=== PATIENT | female | born 1930 | race Caucasian/White ===

== ENCOUNTER 2016-11-24 09:26 | Inpatient (IN) | payer OTHER ==
[2016-11-24] MEDS ORDERED: NS 500 ML IV ONE (09:39)
--- NOTE | 2016-11-24 09:48 | CPEKG ---
Heart Rate: 70 RR Interval: 857 P-R Interval: 188 QRSD Interval: 92 QT Interval: 400 QTC Interval: 432 P Dimock: 46 QRS Dimock: 76 T Wave Dimock: -30 EKG Severity - ABNORMAL ECG - EKG Impression: PACEMAKER SPIKES OR ARTIFACTS EKG Impression: SINUS RHYTHM EKG Impression: ANTERIOR INFARCT, AGE INDETERMINATE EKG Impression: ABNORMAL T, CONSIDER ISCHEMIA, INFERIOR LEADS Electronically Signed By: Quang Munoz 24-Nov-2016 14:31:56
--- NOTE | 2016-11-24 09:48 | EDPHY ---
H & P Stated Complaint: Mental status change Source: Patient, Family, EMS - Medical/Surgical History Hx Asthma: Yes Hx Chronic Respiratory Disease: No Hx Diabetes: No Hx Cardiac Disease: Yes Hx Renal Disease: No Hx Cirrhosis: No Hx Alcoholism: No Hx HIV/AIDS: No Hx Splenectomy or Spleen Trauma: No Other PMH: Chronic back pain, rib fracture, HTN, c-difficile, atrial fibrillation, hypothyroidism, asthma, osteoarthritis, chronic pain, hx of single seizure, depression - Social History Smoking Status: Unknown if ever smoked HPI/ROS: CHIEF COMPLAINT: mental status change HISTORY OF PRESENT ILLNESS: EMS arrives with reports of acute mental status changes this morning. Family members report that she is normally acutely aware of her surroundings, converses normally. However this morning, they note that this changed. SHe said that she was not speaking in full sentences. She was not recognizing her family members. She was acting confused. They do not report any unilateral weakness or facial droop. No recent cough or flu-like symptoms. Very are wondering if this is related to urinary tract infection, as she has had a acute delirium in the past due to urinary tract infection. No other information is obtainable from the patient as she is not conversing with this. She was seen at time of arrival by myself and Dr. Munoz. REVIEW OF SYSTEMS: Ten systems reviewed and are negative unless otherwise noted in the HPI EXAMINATION General Appearance: Alert, no distress Head: normocephalic, atraumatic . No outward signs of trauma. Eyes: Pupils equal and round, no conjunctival pallor or injection . EOMs intact. No nystagmus. NO dysconjugate gaze. ENT, Mouth: Mucous membranes Mildly dry. Uvula is midline. There is no erythema or edema. The airway is patent. Neck: Normal inspection, supple, non-tender Respiratory: Lungs are clear to auscultation . No wheezing, rhonchi or crackles. Cardiovascular: Irregularly regular with a regular rate. Later in the examination she was regular rate and rhythm. Gastrointestinal: Abdomen is soft and nontender . NO distention. Normal bowel sounds. NO tympany rigidity. Back: non-tender, no bony abnormalities Neurological: Patient recognizes her name but does not converse, thus we cannot check her mental status otherwise. No facial droop. no unilateral weakness. No outward signs of stroke. Skin: Warm and dry . Mild bruising in all extremities. Superficial skin tear on the right medial calf. NO petechiae or purpura. Extremities: Nontender, no pedal edema Psychiatric: Mood and affect normal DIFFERENTIAL DIAGNOSES: Including but not limited to Acute delirium, acute AMS, uremia, sepsis, UTI, pneumonia, intracranial hemorrhage, hypertensive emergency MDM: 9:35 a.m. acute mental status change this morning as described by her family members and EMS. The patient has no unilateral complaints. She is hypertensive and is not following commands or communicating with us. CT scan of the head was immediately ordered due to ICH. We also ordered a sepsis workup. 10:40 a.m. notified by radiologist that the CT of the head reveals atrophy but no evidence of bleed or acute findings. I have re-evaluated the patient. She is actually improving her mental status. She recognizes her daughter in-law the bedside. SHe recognizes some simple commands. SHe denies any complaints of pain or headache. We will check a Dilantin level, chest x-ray and urinalysis. 11:30 a.m. Encephalopathy without signs or symptoms of infection. No pneumonia on chest x- ray. Urinalysis is normal. Labs within normal limits. NO CT changes. We have consulted Neurology, initiated a Cardene drip and will proceed with admission for further workup. 12:45 p.m. patient has been admitted to the hospitalist and he has evaluated her here in the emergency department. Please see his note for inpatient workup and care. SUPERVISION: This was shared with the attending physician Dr. Munoz. ([facility]) Constitutional: Initial Vital Signs Temperature (C) 98.2 F 11/24/16 09:51 Heart Rate 89 11/24/16 09:51 Respiratory Rate 20 11/24/16 09:51 Blood Pressure 220/88 H 11/24/16 09:51 O2 Sat (%) 94 11/24/16 09:51 O2 Delivery Mode Nasal Cannula O2 (L/minute) 2 Allergies/Adverse Reactions: morphine Allergy (Verified 11/24/16 09:49) Sulfa (Sulfonamide Antibiotics) Allergy (Verified 11/24/16 09:49) sulfamethoxazole Allergy (Verified 11/24/16 09:49) Home Medications: Medication Instructions Recorded Diltiazem HCl [Diltiazem 24Hr Cd] 180 mg PO DAILY 12/09/15 Mometasone/Formoterol [Dulera 200 1 puffs IH HS 12/09/15 Mcg/5 Mcg Inhaler] Mv-Mn/FA/Vit K/Lycop/Lut/Zeaxa 1 each PO DAILY 12/09/15 [Ocuvite Eye + Multi Tablet] Phenytoin Sodium Extended 200 mg PO HS 12/09/15 [Dilantin (*)] oxyCODONE HCL [Oxycontin] 20 mg PO Q12H 12/09/15 oxyCODONE/APAP 5/325 [Percocet 1 tab PO BID PRN 12/09/15 5/325 (*)] Donepezil HCl [Aricept 5 MG (*)] 5 mg PO DAILY 11/24/16 Herbals/Supplements -Info Only 1 ea PO DAILY 11/24/16 Levothyroxine [Synthroid 50 mcg 50 mcg PO DAILY06 11/24/16 (*)] Nortriptyline HCl [Pamelor 10 mg 30 mg PO HS 11/24/16 (*)] Venlafaxine HCl [Venlafaxine HCl 150 mg PO DAILY 11/24/16 ER] Medical Decision Making Critical Care Time: Critical care time exclusive of procedures and exclusive of the PA's time was 45 minutes, performed by myself, Quang Munoz MD. The patient presents to the ED with acute altered mental status and hypertensive emergency. The patient has been started on nicardipine drip and will require admission to the intensive care unit. Consultation was made with the hospitalist service as well as neurologist for further assistance in evaluating her acute presentation today. (Quang Munoz) Other Provider: I evaluated and participated in the management of the patient. I also evaluated the patient independently. My co-signature indicates that I have reviewed this chart and I agree with the findings and plan of care as documented. My personal H&P findings include: The patient presents to the ED with acute altered mental status. The patient awoke today with symptoms of confusion. She was ambulatory however confused regarding names people she typically is well acquainted with. The patient has a history of a similar presentation with altered mental status 1 year ago secondary to urinary tract infection. The patient is difficult to examine secondary to her confusion. She does not appear to have any obvious focal motor deficits noted on exam. The patient is noted to be hypertensive upon arrival. She was taken for a stat CT scan of the brain which demonstrated no evidence of intracranial hemorrhage. Patient has no fever nor evidence of urinary tract infection. The patient is on a number of medications for chronic back pain. She also has a history of seizure disorder. Consultation was made with Dr. Emiliano Long from Neurology. The patient will be admitted for close control of her blood pressure. She is started on nicardipine drip for possible hypertensive encephalopathy. Consultation was made with Dr. Cesar Zamarripa from the hospitalist service who evaluated the patient in the ED. She will be admitted to the hospital for further evaluation. CT angiography of the head and neck has been ordered. The patient is not a candidate for thrombolytics therapy as she woke up with these symptoms of acute confusion. Patient's blood pressure is currently 169/89 at 1:09 p.m.. (Quang Munoz) - Data Points Laboratory Results: Laboratory Results 11/24/16 09:40 11/24/16 09:40 11/24/16 11/24/16 11/24/16 11:10 09:40 09:40 WBC RBC Hgb POC Hgb Hct POC Hct MCV MCH MCHC RDW Plt Count MPV Neut % (Auto) Lymph % (Auto) [place] % (Auto) Eos % (Auto) Baso % (Auto) Nucleat RBC Rel Count Absolute Neuts (auto) Absolute Lymphs (auto) Absolute Monos (auto) Absolute Eos (auto) Absolute Basos (auto) Absolute Nucleated RBC Immature Gran % Immature Gran # PT INR APTT VBG Lactic Acid POC Sodium Sodium 138 mEq/L mEq/L (134-144) POC Potassium Potassium 4.6 mEq/L mEq/L (3.5-5.2) POC Chloride Chloride 100 mEq/L mEq/L (97-110) Carbon Dioxide 27 mEq/l mEq/l (22-31) Anion Gap 11 mEq/L mEq/L (8-16) POC BUN BUN 9 mg/dL mg/dL (7-23) Creatinine 0.5 mg/dL L mg/dL (0.6-1.0) POC Creatinine Estimated GFR > 60 Glucose 133 mg/dL H mg/dL (70-100) POC Glucose Calcium 9.4 mg/dL mg/dL (8.5-10.4) Phosphorus Magnesium Total Bilirubin 0.7 mg/dL mg/dL (0.1-1.4) Conjugated Bilirubin 0.6 mg/dL H mg/dL (0.0-0.5) Unconjugated Bilirubin 0.1 mg/dL mg/dL (0.0-1.1) AST 46 IU/L IU/L (14-46) ALT 45 IU/L IU/L (9-52) Alkaline Phosphatase 118 IU/L IU/L (38-126) Ammonia < 9.0 uMOL/L L uMOL/L (9.0-30.0) Creatine Kinase 47 IU/L IU/L (0-156) Troponin I NT-Pro-B Natriuret Pep Total Protein 8.6 g/dL H g/dL (6.3-8.2) Albumin 4.9 g/dL g/dL (3.5-5.0) TSH Urine Color PALE YELLOW Urine Appearance CLEAR Urine pH 7.0 (5.0-7.5) Ur Specific [place] 1.008 (1.002-1.030) Urine Protein NEGATIVE (NEGATIVE) Urine Ketones NEGATIVE (NEGATIVE) Urine Blood NEGATIVE (NEGATIVE) Urine Nitrate NEGATIVE (NEGATIVE) Urine Bilirubin NEGATIVE (NEGATIVE) Urine Urobilinogen NEGATIVE EU EU (0.2-1.0) Ur Leukocyte Esterase NEGATIVE (NEGATIVE) Urine Glucose NEGATIVE (NEGATIVE) Phenytoin 11/24/16 11/24/16 11/24/16 09:40 09:40 09:38 WBC 6.72 10^3/uL 10^3/uL (3.80-9.50) RBC 4.50 10^6/uL 10^6/uL (4.18-5.33) Hgb 15.7 g/dL g/dL (12.6-16.3) POC Hgb Hct 45.9 % % (38.0-47.0) POC Hct MCV 102.0 fL H fL (81.5-99.8) MCH 34.9 pg H pg (27.9-34.1) MCHC 34.2 g/dL g/dL (32.4-36.7) RDW 13.4 % % (11.5-15.2) Plt Count 215 10^3/uL 10^3/uL (150-400) MPV 9.5 fL fL (8.7-11.7) Neut % (Auto) 78.9 % H % (39.3-74.2) Lymph % (Auto) 14.9 % L % (15.0-45.0) [place] % (Auto) 5.4 % % (4.5-13.0) Eos % (Auto) 0.1 % L % (0.6-7.6) Baso % (Auto) 0.6 % % (0.3-1.7) Nucleat RBC Rel Count 0.0 % % (0.0-0.2) Absolute Neuts (auto) 5.30 10^3/uL 10^3/uL (1.70-6.50) Absolute Lymphs (auto) 1.00 10^3/uL 10^3/uL (1.00-3.00) Absolute Monos (auto) 0.36 10^3/uL 10^3/uL (0.30-0.80) Absolute Eos (auto) 0.01 10^3/uL L 10^3/uL (0.03-0.40) Absolute Basos (auto) 0.04 10^3/uL 10^3/uL (0.02-0.10) Absolute Nucleated RBC 0.00 10^3/uL 10^3/uL (0-0.01) Immature Gran % 0.1 % % (0.0-1.1) Immature Gran # 0.01 10^3/uL 10^3/uL (0.00-0.10) PT INR APTT VBG Lactic Acid 1.0 mmol/L mmol/L (0.7-2.1) POC Sodium Sodium POC Potassium Potassium POC Chloride Chloride Carbon Dioxide Anion Gap POC BUN BUN Creatinine POC Creatinine Estimated GFR Glucose POC Glucose Calcium Phosphorus 4.5 mg/dL mg/dL (2.5-4.5) Magnesium 2.0 mg/dL mg/dL (1.6-2.3) Total Bilirubin Conjugated Bilirubin Unconjugated Bilirubin AST ALT Alkaline Phosphatase Ammonia Creatine Kinase Troponin I < 0.012 ng/mL ng/mL (0-0.034) NT-Pro-B Natriuret Pep 828 pg/mL H pg/mL (0-450) Total Protein Albumin TSH 5.610 uIU/mL H uIU/mL (0.465-4.680) Urine Color Urine Appearance Urine pH Ur Specific [place] Urine Protein Urine Ketones Urine Blood Urine Nitrate Urine Bilirubin Urine Urobilinogen Ur Leukocyte Esterase Urine Glucose Phenytoin 11/24/16 11/24/16 11/24/16 09:38 09:35 09:33 WBC RBC Hgb POC Hgb 15.6 gm/dL gm/dL (12.3-15.9) Hct POC Hct 46 % % (35.5-47.5) MCV MCH MCHC RDW Plt Count MPV Neut % (Auto) Lymph % (Auto) [place] % (Auto) Eos % (Auto) Baso % (Auto) Nucleat RBC Rel Count Absolute Neuts (auto) Absolute Lymphs (auto) Absolute Monos (auto) Absolute Eos (auto) Absolute Basos (auto) Absolute Nucleated RBC Immature Gran % Immature Gran # PT 13.1 SEC SEC (12.0-15.0) INR 1.00 (0.83-1.16) APTT 31.1 SEC SEC (23.0-38.0) VBG Lactic Acid POC Sodium 138 mEq/L mEq/L (134-144) Sodium POC Potassium 4.2 mEq/L mEq/L (3.3-5.0) Potassium POC Chloride 99 mEq/L mEq/L (96-108) Chloride Carbon Dioxide Anion Gap POC BUN 9 mg/dL mg/dL (7-23) BUN Creatinine POC Creatinine 0.6 mg/dL mg/dL (0.6-1.2) Estimated GFR Glucose POC Glucose 132 mg/dL H mg/dL (70-100) Calcium Phosphorus Magnesium Total Bilirubin Conjugated Bilirubin Unconjugated Bilirubin AST ALT Alkaline Phosphatase Ammonia Creatine Kinase Troponin I NT-Pro-B Natriuret Pep Total Protein Albumin TSH Urine Color Urine Appearance Urine pH Ur Specific [place] Urine Protein Urine Ketones Urine Blood Urine Nitrate Urine Bilirubin Urine Urobilinogen Ur Leukocyte Esterase Urine Glucose Phenytoin 15.9 mcg/mL mcg/mL (10.0-20.0) Medications Given: Discontinued Medications Sodium Chloride (Ns) 500 mls @ 0 mls/hr IV ONCE ONE PRN Reason: Wide Open Stop: 11/24/16 09:40 Last Admin: 11/24/16 10:20 Dose: 500 mls Nicardipine/Sodium Chloride (Cardene 0.1 Mg/Ml (Premix)) 200 mls @ 0 mls/hr IV CONT LISA; Titrate PRN Reason: Protocol Stop: 05/23/17 11:59 Last Admin: 11/24/16 11:55 Dose: 200 mls Midazolam HCl (Versed) 1 mg IVP EDNOW ONE Stop: 11/24/16 10:11 Last Admin: 11/24/16 10:10 Dose: 1 mg Midazolam HCl (Versed) 1 mg IVP ONCE ONE Stop: 11/24/16 12:56 Last Admin: 11/24/16 13:36 Dose: Not Given Point of Care Test Results: 11/24/16 09:35 POC Sodium 138 POC Potassium 4.2 POC Chloride 99 POC BUN 9 POC Creatinine 0.6 POC Glucose 132 H Departure - Departure Disposition: [facility] In[facility] Acute Clinical Impression: Hypertensive emergency Altered mental status, unspecified Qualifiers: Altered mental status type: unspecified Qualified Code(s): R41.82 - Altered mental status, unspecified Hypertension Qualifiers: Hypertension type: essential hypertension Qualified Code(s): I10 - Essential ( primary) hypertension Condition: Critical
[2016-11-24 09:49] LABS: % IMMATURE GRANULYOCYTES 0.1 % (0.0-1.1); ABSOLUTE IMMATURE GRANULOCYTES 0.01 10^3/uL (0.00-0.10); ADD DIFF? NO; ADD MORPH? NO; ADD SCAN? NO; ATYPICAL LYMPHOCYTE FLAG 0 (0-99); FRAGMENT RBC FLAG 0 (0-99); HEMATOCRIT 45.9 % (38.0-47.0); HEMOGLOBIN 15.7 g/dL (12.6-16.3); LEFT SHIFT FLG 0 (0-99); LIPEMIA HEMOLYSIS FLAG 90 (0-99); MEAN CELL HEMOGLOBIN 34.9 pg (27.9-34.1); MEAN CELL HEMOGLOBIN CONCENTR. 34.2 g/dL (32.4-36.7); MEAN PLATELET VOLUME 9.5 fL (8.7-11.7); PLATELET CLUMPS FLAG 10 (0-99); PLATELET COUNT 215 10^3/uL (150-400); RED CELL DISTRIBUTION WIDTH 13.4 % (11.5-15.2)
[2016-11-24] MEDS ORDERED: MIDAZOLAM 2 MG/2 ML VIAL ONE (10:01)
[2016-11-24 10:02] LABS: PROTIME(PATIENT) 13.1 SEC (12.0-15.0)
[2016-11-24 10:02] LABS: ALANINE AMINOTRANSFERASE 45 IU/L (9-52); ALBUMIN 4.9 g/dL (3.5-5.0); ALKALINE PHOSPHATASE 118 IU/L (38-126); ANION GAP 11 mEq/L (8-16); ASPARTATE AMINOTRANSFERASE 46 IU/L (14-46); BILIRUBIN,TOTAL 0.7 mg/dL (0.1-1.4); BILIRUBIN-CONJUGATED 0.6 mg/dL (0.0-0.5); BILIRUBIN-UNCONJUGATED 0.1 mg/dL (0.0-1.1); CALCIUM 9.4 mg/dL (8.5-10.4); CARBON DIOXIDE 27 mEq/l (22-31); CHLORIDE 100 mEq/L (97-110); CREATININE 0.5 mg/dL (0.6-1.0); GLOMERULAR FILTRATION RATE > 60; GLUCOSE 133 mg/dL (70-100); POTASSIUM 4.6 mEq/L (3.5-5.2); SODIUM 138 mEq/L (134-144); TOTAL PROTEIN 8.6 g/dL (6.3-8.2)
[2016-11-24 10:03] LABS: APTT 31.1 SEC (23.0-38.0)
[2016-11-24] MEDS ORDERED: MIDAZOLAM 10 MG/2 ML VIAL IVP ONE (10:10)
[2016-11-24 11:31] LABS: COLOR PALE YELLOW; LEUKOCYTE ESTERASE,URINE NEGATIVE (NEGATIVE); NITRITE,URINE NEGATIVE (NEGATIVE)
[2016-11-24] MEDS ORDERED: niCARdipine/NACL 200 ML IV SCH ×2 (12:00→13:30)
[2016-11-24] MEDS ORDERED: IOPAMIDOL (ISOVUE-300) 100 ML BTL IV ONE (12:36)
[2016-11-24] MEDS ORDERED: MIDAZOLAM 2 MG/2 ML VIAL IVP ONE (12:55)
[2016-11-24] MEDS ORDERED: ACETAMINOPHEN 325 MG TAB PO PRN (12:56)
[2016-11-24] MEDS ORDERED: ONDANSETRON DISINTEGRATING 4 MG TAB PO PRN (12:56)
[2016-11-24] MEDS ORDERED: ONDANSETRON 4 MG/2 ML VIAL IVP PRN (12:56)
[2016-11-24] MEDS ORDERED: NS W/ 20 KCl/L 1,000 ML IV SCH (13:00)
[2016-11-24 13:56] LABS: TROPONIN I < 0.012 ng/mL (0-0.034)
--- NOTE | 2016-11-24 14:03 | GHP ---
[f rep st] HISTORY AND PHYSICAL DATE OF ADMISSION: 11/24/2016 CHIEF COMPLAINT: Confused. HISTORY OF PRESENT ILLNESS: This is an 86-year-old female who presents with confusion. Per her bertha zenyter, from whom history is obtained, she woke up confused this morning. She normally lives with he r niece and nephew, is alert and oriented x3, follows current events. Today, she woke up and barely recognized her family. When I am seeing her, she is unable to tell me her last name, where she is, or what the date is. She is able to answer questions and denies headache or chest pain. She does tell me that she has ongoing back pain which has been a constant problem for her. She uses 2 L of o xygen at night. She was somewhat hypoxic when she arrived to the ED and when paramedics found her. Her blood pressures normally run around 150/80. She takes multiple medications, though her nephew gives her her medications. She has not changed any medications recently. She is taking oxycodone a nd nortriptyline. I also note that she is taking Aricept. She had a seizure years ago but has been on a stable dose of Dilantin. PAST MEDICAL/PAST SURGICAL HISTORY: 1. Seizure disorder, on Dilantin. 2. Neuropathic pain, on nortriptyline. 3. Hypothyroid. 4. Dementia. 5. Depression. 6. Chronic pain, on continuous narcotics. 7. Hypertension. MEDICATIONS: Please see medication reconciliation. ALLERGIES: Morphine, sulfa, and Bactrim. FAMILY HISTORY: Parents are . SOCIAL HISTORY: She lives with her niece and nephew. She drinks about 1 glass of wine a year. She does not smoke. REVIEW OF SYSTEMS: A 10-point review of systems is conducted and is negative except per HPI. PHYSICAL EXAMINATION: VITAL SIGNS: Blood pressure initially was 220/88, heart rate 89, respiration rate 20, saturating 94% on non-rebreather initially, 82% on room air. Temperature is 36.8. GENERA L: Ms. No is a pleasant female who is resting comfortably, in no acute distress. HEENT: Norm ocephalic, atraumatic. CARDIOVASCULAR: A regular rate and rhythm. She has a prominent crescendo d ecrescendo systolic murmur, it is about 3/6. PULMONARY: Lungs are clear bilaterally. She is not i n any respiratory distress. ABDOMINAL: Soft. She is diffusely tender to palpation. There are no masses appreciated. SKIN: No rash. : No Valles. NEUROLOGIC: Shows her to be alert and oriente d x0. She has no focal findings, although exam is difficult. Her reflexes are diminished but symme tric in her patella and her biceps. She is moving all extremities. She reports intact sensation to light touch. PSYCHIATRIC: Unobtainable. LABORATORY DATA: White count 6.2, hemoglobin is 15. INR is 1.0. Lactate is 1.0. Ammonia is less than 9. Total protein is 8.6. Urinalysis is unremarkable. Dilantin level is 15.9. DATA: 1. I discussed this with Dr. Munoz in the Emergency Department. We will plan [facility]. 2. I personally viewed and interpreted her chest x-ray. This shows chronic changes. She has multi level lumbothoracic fusion. Lung barillas are clear. Heart size, she has borderline cardiomegaly. 3. I personally viewed and interpreted her EKG and [facility] This shows Q-waves in V1 through V3. Her old had Q-waves in V1 and V2 but not V3. Otherwis e, she has no significant ST changes. 4. Head CT shows nothing acute. IMPRESSION/PLAN: An 86-year-old female with significant encephalopathy. 1. Encephalopathy: There is a broad differential. Potentially hypertensive (though I note her blo od pressure was this elevated last year), subclinical seizures, cold infection, acute cerebrovascula r accident, due to intraabdominal process given her exam findings. We will work up each issue as be low. 2. Abdominal pain. CT scan has been ordered. Agree with obtaining this given her otherwise undiff erentiated encephalopathy. 3. Multiple sedating medications: Certainly may be contributing as well. We will hold her medicin es for now and follow closely. 4. Hypoxia: This has resolved, and her encephalopathy continues. I do not think that this is the etiology. I think this is more chronic. We will continue supplemental oxygen. 5. Hypertensive urgency versus emergency. Again, she is not significantly improved with her blood pressure low on nicardipine drip. I think it is reasonable to continue this for now. I would targe t blood pressures systolics of 160-180. 6. Cardiovascular: EKG is slightly changed. She does have a prominent systolic murmur. I have ch ecked a troponin. We will trend these and address appropriately if necessary. 7. Hypothyroid: Check a TSH. 8. Seizure disorder: I have ordered an EEG. Neurology has been consulted. 9. She has a history of Clostridium difficile. If antibiotics are started, daughter would prefer t o give her prophylactic vancomycin. 10. Code status: Daughter is unsure of her code status. She has requested that we make her full c ode while she discusses this with her sister. 11. Venous thromboembolism risk is high. I will give her Lovenox. /[id number]/MODL
--- NOTE | 2016-11-24 18:19 | GCON ---
[f rep st] CONSULTATION NEUROLOGY CONSULT REFERRING PHYSICIAN: Cesar Zamarripa MD CHIEF COMPLAINT: Confusion. HISTORY OF PRESENT ILLNESS: The patient is an 86-year-old lady with known hypertension and previous hypertensive encephalopathy episodes most likely. The patient wears oxygen while sleeping at night, may have taken it off last night. In any case, she woke up this morning feeling confused and having difficulty recognizing family members. This has occurred twice previously and both times, her blood pressure was elevated. In our hospital, we had systolic blood pressures over 200s, and transferred her to her home hospital at [place] at that time, where she had a UTI also diagnosed. Here, today with her confusion again, her blood pressure was elevated to 208/ 78. She was transferred to the ICU for management of hypertensive crisis with IV medication. With IV nicardipine, her blood pressure has smoothly come down to the 160s over 60s, and her mental status has rapidly improved. She had a CT of the head, which was unremarkable. CT of the head and neck, which showed no acute vascular abnormality or thrombus. There were no focal motor or sensory, or visual symptoms today. No aphasia. REVIEW OF SYSTEMS: Ten-point review of systems was done and only pertinent to HPI. For her past medical history, social history, family history, home medications, and allergies please refer to Dr. Zamarripa's H and P. PHYSICAL EXAM: VITAL SIGNS: Current blood pressure is 160s over 70s, respirations 15, afebrile at 36.8, heart rate 70. GENERAL: No acute distress. Very pleasant lady. HIGHER MENTAL FUNCTION: She is now bright, awake, and alert and conversant. She thought the year was 1969, but knew the president was President Albert. There was no aphasia or paraphasic errors noted in her interview. CRANIAL NERVES: Normal 2 through 7, and 12. No dysarthria. MOTOR EXAM: She has symmetric strength throughout. No focal weakness. Deep tendon reflexes were symmetric. Toes were downgoing. Tone was normal. SENSORY EXAM: Normal light touch in all 4 limbs. COORDINATION: Normal coordination in all 4 limbs. There was no limb ataxia. IMPRESSION AND PLAN: 1. Hypertensive crisis 2. Encephalopathy, resolving. Overall, her clinical picture best fits with hypertensive encephalopathy. Her symptoms are resolving with normalization of blood pressure that was achieved with IV medications. She has had no focal findings. She has had similar presentations in the past with elevated blood pressure with systolics in the 200s. We discussed it at length. It is not clear what triggered this hypertensive crisis today. She wears oxygen at night and she may have taken it off in the middle of the night during sleep, which caused some desaturation and perhaps triggered a secondary autonomic response. Discussed at length with the family. I recommend continued tight control of blood pressure with gradual reduction. Certainly, her medications could be reconsidered going forward. We talked about the importance of keeping the oxygen on at night while asleep with her family. There has been no seizure activity or subtle seizure activity. I do not recommend that we pursue further with an EEG now. She does have a history of seizures in the past, which are fairly undefined. She takes Dilantin for this and her Dilantin level was therapeutic at 15.9. She certainly could follow up with her neurologist at [facility] as an outpatient for ongoing management of her seizure disorder. No further recommendations now. Plan discussed with Dr. Zamarripa. We will continue to follow this very pleasant patient as needed. Please do not hesitate to call if there are any changes in her neurologic status. Thank you for this consultation. /[id number]/MODL MTDD
[2016-11-24] MEDS ORDERED: hydrALAZINE 20 MG/ML VIAL IVP PRN (19:51)
[2016-11-24] MEDS ORDERED: Mometasone/Formoterol [Dulera 200 Mcg/5 Mcg Inhaler] IH SCH (21:00)
[2016-11-24] MEDS ORDERED: PHENYTOIN SODIUM EXTENDED 100 MG CAP PO SCH (21:00)
[2016-11-25 05:37] LABS: % IMMATURE GRANULYOCYTES 0.4 % (0.0-1.1); ABSOLUTE IMMATURE GRANULOCYTES 0.03 10^3/uL (0.00-0.10); ADD DIFF? NO; ADD MORPH? NO; ADD SCAN? NO; ATYPICAL LYMPHOCYTE FLAG 10 (0-99); FRAGMENT RBC FLAG 0 (0-99); HEMATOCRIT 41.6 % (38.0-47.0); HEMOGLOBIN 14.3 g/dL (12.6-16.3); LEFT SHIFT FLG 0 (0-99); LIPEMIA HEMOLYSIS FLAG 90 (0-99); MEAN CELL HEMOGLOBIN CONCENTR. 34.4 g/dL (32.4-36.7); MEAN CELL VOLUME 98.8 fL (81.5-99.8); MEAN PLATELET VOLUME 9.7 fL (8.7-11.7); PLATELET CLUMPS FLAG 0 (0-99); PLATELET COUNT 206 10^3/uL (150-400); RED BLOOD CELL COUNT 4.21 10^6/uL (4.18-5.33); RED CELL DISTRIBUTION WIDTH 13.4 % (11.5-15.2)
[2016-11-25 05:48] LABS: ALANINE AMINOTRANSFERASE 40 IU/L (9-52); ALBUMIN 4.1 g/dL (3.5-5.0); ALKALINE PHOSPHATASE 89 IU/L (38-126); ANION GAP 9 mEq/L (8-16); ASPARTATE AMINOTRANSFERASE 36 IU/L (14-46); BILIRUBIN,TOTAL 0.8 mg/dL (0.1-1.4); CARBON DIOXIDE 25 mEq/l (22-31); CHLORIDE 105 mEq/L (97-110); CREATININE 0.5 mg/dL (0.6-1.0); GLOMERULAR FILTRATION RATE > 60; GLUCOSE 94 mg/dL (70-100); SODIUM 139 mEq/L (134-144)
[2016-11-25] MEDS ORDERED: LEVOTHYROXINE 50 MCG TAB PO SCH (06:00)
[2016-11-25 08:26] VITALS: RESP 18
--- NOTE | 2016-11-25 08:48 | WOCRNPDOC ---
WOCRN Advanced Assessment Note - Skin Integrity Problem, Advanced Assess Coccyx Pressure Injury Dressing Type: Allevyn Life (Placed by nursing) Dressing Description: Clean/Dry, Intact Exudate Amount: None Exudate Characteristic(s): None Integumentary Issue Intervention: Visualized Under Dressing Yuliet Wound Tissue: Blanching, Intact Yuliet Wound Swelling: None Wound Bed Color: Red Site Measurement - Head-to-Toe Length X Width X Depth (cm): [id number] Pressure Injury Stage: Stage 1 Pressure Injury Present on Admit: Yes (Noted by nursing) Skin Integrity Problem Comment: Small area of discrete, non-blanching erythema noted directly over coccyx, consistent in appearance w/ stage I pressure injury. Yuliet-wound skin is presently blanching and intact. Nursing placed an Allevyn Life sacral dressing prophylactically yesterday evening, and I recommend continuing with this tx as she has a very prominent coccyx. Turns q2 and Accu-max pump initiated. Report given to [place] Thad.
[2016-11-25] MEDS ORDERED: DONEPEZIL HCL 5 MG TAB PO SCH (09:00)
[2016-11-25] MEDS ORDERED: ENOXAPARIN 40 MG/0.4 ML SYR SC SCH (09:00)
[2016-11-25] MEDS ORDERED: DILTIAZEM CD 180 MG CAP PO SCH (09:00)
[2016-11-25] MEDS ORDERED: PRESERVISION AREDS2 FORMULA EYE VIT 1 EACH PO SCH (09:00)
[2016-11-25] MEDS ORDERED: VENLAFAXINE XR 150 MG CAP PO SCH (09:00)
[2016-11-25 11:41] VITALS: O2SAT 93
--- NOTE | 2016-11-25 13:42 | HOSPPROG ---
Hospitalist Progress Note Assessment/Plan: patient is an 86-year-old female who presented to the emergency room with confusion. She is usually alert and oriented and follows current events. She woke up she really recognize her family. She has a history of a seizure many years ago but is on Dilantin. Today is my 1st encounter with the patient. Chart reviewed. * Confusion/ likely secondary from hypertensive encephalopathy -head CT showed nothing acute -CTA of head and neck do not show any occlusion -she is alert and oriented * abdominal pain -CT scan shows constipation * hypoxemia -resolved/ checked her on room air and she is stable * EKG changes -troponin are negative -no chest pain -recommending further f/u with her PCP * hypothyroidism - TSH is a bit elevated/ should get this rechecked in 6 weeks * seizure disorder -Dilantin level stable *stage I coccyx pressure injury/ POA -appreciate wound care *HTN: bp better overall/ will have her f/u with her PCP/ get a bp cuff/ discussed w her daughter in law, Kylie, about plan of care and treatments *Plan: dc home/ she needs close f/u with her PCP Subjective: Yimi is feeling great/ wants to leave. Objective: Vital Signs Temp Pulse Resp BP Pulse Ox 36.6 C 78 18 169/83 H 93 11/25/16 11:38 11/25/16 11:38 11/25/16 11:38 11/25/16 11:38 11/25/16 11:38 Laboratory Results 11/25/16 05:08 11/25/16 05:08 11/24/16 11/25/16 11/26/16 05:59 05:59 05:59 Intake Total 800 Output Total 280 Balance 520 PT 13.1 SEC (12.0-15.0) 11/24/16 09:33 INR 1.00 (0.83-1.16) 11/24/16 09:33 - Physical Exam Constitutional: no apparent distress, appears nourished, not in pain Eyes: PERRL Cardiovascular: regular rate and rhythym, systolic murmur Respiratory: no respiratory distress Gastrointestinal: normoactive bowel sounds Skin: warm Musculoskeletal: no muscle tenderness Neurologic: AAOx3, No facial droop Psychiatric: interacting appropriately, not anxious, not encephalopathic, thought process linear ICD10 Worksheet Patient Problems: Problems Problem Status Onset Altered mental status, unspecified Acute Hypertension Acute Hypertensive emergency Acute
[2016-11-25 15:52] VITALS: BP 175/73; PULSE 67; TEMP 97.6
--- NOTE | 2016-11-25 16:11 | PDIAF ---
- Diagnosis Diagnosis: hypertensive encephalopathy Code Status: Full Code - Medication Management Discharge Medications: Medications to Continue on Transfer Diltiazem HCl [Diltiazem 24Hr Cd] 180 mg PO DAILY 12/09/15 [Last Taken 11/23/16] Mometasone/Formoterol [Dulera 200 Mcg/5 Mcg Inhaler] 1 puffs IH HS 12/09/15 [ Last Taken 11/23/16] Mv-Mn/FA/Vit K/Lycop/Lut/Zeaxa [Ocuvite Eye + Multi Tablet] 1 each PO DAILY 04/18 [Last Taken 11/23/16] Phenytoin Sodium Extended [Dilantin (*)] 200 mg PO HS 12/09/15 [Last Taken 11/23] oxyCODONE HCL [Oxycontin] 20 mg PO Q12H 12/09/15 [Last Taken 11/23/16] oxyCODONE/APAP 5/325 [Percocet 5/325 (*)] 1 tab PO BID PRN 12/09/15 [Last Taken 11/23/16] Donepezil HCl [Aricept 5 MG (*)] 5 mg PO DAILY 11/24/16 [Last Taken 11/23/16] Herbals/Supplements -Info Only 1 ea PO DAILY 11/24/16 [Last Taken 11/23/16] Levothyroxine [Synthroid 50 mcg (*)] 50 mcg PO DAILY06 11/24/16 [Last Taken ] Nortriptyline HCl [Pamelor 10 mg (*)] 30 mg PO HS 11/24/16 [Last Taken 11/23/16] Venlafaxine HCl [Venlafaxine HCl ER] 150 mg PO DAILY 11/24/16 [Last Taken ] Acetaminophen [Tylenol 325mg (*)] 650 mg PO Q4HRS PRN #0 tab 11/25/16 [Last Taken Unknown] amLODIPine BESYLATE [Norvasc 2.5 mg (*)] 2.5 mg PO DAILY #30 tab 11/25/16 [Last Taken Unknown] Discharge Medications: Refer to the Discharge Home Medication list for PRN reason. PICC Care - Routine: N/A - Orders Services needed: Home Care, Registered Nurse, Physical Therapy, Occupational Therapy Home Care Face to Face: I certify that this patient was under my care and that I had the required [id number] encounter meeting the encounter requirements on the discharge day. My findings support the fact that the patient is homebound as defined in CMS Chapter 7 Medicare Benefits Manual 30.1.1, The condition of the patient is such that there exists a normal inability to leave home and consequently, leaving home would require a considerable and taxing effort. Diet Recommendation: no restrictions on diet Diet Texture: Regular Texture Diet Additional: check bp daily/ keep a record to bring to PCP at [place]/ she has a new medication, Norvasc, added to her home regimen. - Follow Up Care Current Providers and Referrals: Patient,NotPresent [Unknown] - As per Instructions
--- NOTE | 2016-11-25 18:13 | GDS ---
DISCHARGE DIAGNOSES: 1. Acute confusion secondary from hypertensive encephalopathy. 2. Abdominal pain. 3. Hypoxemia. 4. ECG changes. 5. Hypothyroidism. 6. Seizure disorder. 7. Stage I coccyx pressure injury. 8. Hypertension. 9. Severe compression fractures at T5 and T7. CONSULTATIONS: Dr. Emiliano Long with Neurology Services. HISTORY: Briefly, this is an 86-year-old woman, who presented to the emergency room, with acute confusion. She normally lives with her niece and nephew and is alert and oriented x3 and follows current events. She woke up and did not recognize her family. It was noted in the emergency room that she was severely hypertensive. She has a history of this. During her stay, her blood pressure improved. She had multiple imaging studies, including a CT of the head, CTA of the head and neck, that did not show anything acute. Today, on discharge, she is alert and oriented to person, place, time and situation. I recommended that she get further followup with her doctor at [place]. She will be started on new blood pressure medication to help control her blood pressure. HOSPITAL COURSE: By problem: 1. Confusion likely secondary from hypertensive encephalopathy, resolved. 2. Abdominal pain. None further. CT scan shows constipation. 3. Hypoxemia, resolved. She wears oxygen at night. Oxygen levels are stable on room air. 4. EKG changes. Her troponins are negative. She has no chest pain. I am recommending that the family take a copy of the 12-lead EKG and get followup with her primary care provider. 5. Hypothyroidism. TSH is a bit elevated. She should get this rechecked in 6 weeks. 6. Seizure disorder. Dilantin level stable. 7. Stage I coccyx pressure injury. This was present on admission. Wound Care has been seeing her and recommending Home Care see her in addition. 8. Hypertension. Blood pressure is better. Will have her follow up with her primary care provider. Recommending to get a blood pressure cuff for home use. Will give her a script for Norvasc 2.5 mg. This dose can be increased if her blood pressure continues to be elevated. 9. Severe compression fractures at T5 and T7. She has no complaints of back pain. Will have her again see her doctor. CONDITION AT DISCHARGE: Stable. Blood pressure is 169/83, heart rate is 78, respiratory rate is 18, O2 saturation on 1 L 92%. Temperature is 36.6 degrees Celsius. MEDICATIONS AT DISCHARGE: Please see the EMR. DISCHARGE INSTRUCTIONS: 1. To follow up with her primary care provider in regard to her blood pressure. 2. To get her TSH rechecked in 6 weeks. 3. If she develops fever, chills, chest pain or shortness of breath, return to the ER. Greater than 30 minutes discharging and coordinating care. /[id number]/MODL MTDD
== END 2016-11-25 17:04 | disposition home or self-care (01) | DRG 78 ==
LOC: EDUNIT# → F2N 15:16 → F3E 20:24
PROVIDERS: ADMIT Internal Medicine; ATTEND Family Medicine
DX: I67.4 Hypertensive encephalopathy (principal); M48.54XA Collapsed vertebra, not elsewhere classified, thoracic region, initial encounter for fracture; G89.29 Other chronic pain; F11.20 Opioid dependence, uncomplicated; R10.9 Unspecified abdominal pain; K59.00 Constipation, unspecified; R09.02 Hypoxemia; R94.31 Abnormal electrocardiogram [ECG] [EKG]; E03.9 Hypothyroidism, unspecified; G40.909 Epilepsy, unspecified, not intractable, without status epilepticus; J45.909 Unspecified asthma, uncomplicated; L89.151 Pressure ulcer of sacral region, stage 1; I10 Essential (primary) hypertension; I48.91 Unspecified atrial fibrillation; F32.9 Major depressive disorder, single episode, unspecified; G62.9 Polyneuropathy, unspecified; F03.90 Unspecified dementia, unspecified severity, without behavioral disturbance, psychotic disturbance, mood disturbance, and anxiety
CPT/HCPCS: 82947-QW; 96374; 97161-GP; G8978-GP-CI; G8979-GP-CI; J0360; J1650; J2250; Q9967

== ENCOUNTER 2018-05-04 11:37 | Inpatient (IN) | payer OTHER ==
--- NOTE | 2018-05-04 11:40 | EDPHY ---
HPI/HX/ROS/PE/MDM Narrative: CHIEF COMPLAINT: Fever, altered mental status. HPI: This patient is an 87 year old female arriving via EMS from home for evaluation of fever and altered mental status. She is currently beginning palliative care for a necrotic left toe. This morning, her family noticed a rapid decline in mentation. She is generally ambulatory, talkative, and continent of urine. Today , she is intermittently responsive to verbal stimuli. She did not use the restroom or take her medication last night as she usually does. Her family noted she was febrile, and called her home nurse. Her home care staff recommended evaluation at the emergency department. The family is concerned that her home oxygen is not working, and she may have been hypoxic last night. The report she has had a similar presentation in the past, about once per year. The family plans to have their hospice providers from [facility] come in to evaluate the patient and discuss next steps. HPI obtained from EMS report and family at bedside. REVIEW OF SYSTEMS: Unable to obtain secondary to patient presentation. PMH: Chronic back pain, hypertension, atrial fibrillation, mild dementia, rib fracture, history of c-difficile, hypothyroidism, asthma, osteoarthritis, chronic pain, depression, history of seizure. SOCIAL HISTORY: Retired. Lives at her home in [place]. Family at bedside. PHYSICAL EXAM: General: Altered mental status, lethargic. ENT: Eyes are normal to inspection. Dry mucous membranes. Neck: Normal inspection. Full range of motion. Respiratory:No respiratory distress. Breath sounds normal bilaterally. Cardiovascular: Regular rate and rhythm. Strong peripheral pulses. Normal cap refill. Abdomen: Normal appearance. Skin: Normal color. No rash. Warm and dry. Extremities: Necrotic toe on left foot. Otherwise normal appearance of extremities. Neuro: Altered, lethargic. Moving all extremities. ED Course: 11:38 Met EMS at bedside. 87 y/o female presents with altered mental status, lethargy, and fever. Plan for CXR, labs including CBC, chemistries, lactic acid , blood cultures, UA. We will discuss care with the patient's family on arrival. 12:15 Lactic acid normal. WBC elevated at 17,000. 12:20 Reassessed patient. Discussed care plans with family at bedside. We discussed different levels of interventions and testing including blood cultures , IV antibiotics, IV fluids, urine cath for UA. Offered admission vs care at home. Family states that the patient's wishes are to pass away at home. Discussed patient's presentation is consistent with sepsis. Discussed risks and benefits of treatment. The family agrees to treat with IV antibiotics for early sepsis. CXR negative for pneumonia. UA negative for UTI. Plan to administer 4.5g Zosyn for early sepsis treatment. 13:05 Consulted with hospitalist service. Dr. Gomez accepts admission for sepsis, palliative care. - Data Points Imaging Results: Imaging Impressions Chest X-Ray 05/04/18 11:46 Impression: 1. No pneumonia or obvious CHF. 2. Severe constipation. Imaging: I viewed and interpreted images myself Laboratory Results: Laboratory Results 05/04/18 11:48 05/04/18 11:48 05/04/18 05/04/18 05/04/18 11:48 11:48 11:48 WBC 17.73 10^3/uL H 10^3/uL (3.80-9.50) RBC 4.19 10^6/uL 10^6/uL (4.18-5.33) Hgb 14.5 g/dL g/dL (12.6-16.3) Hct 41.5 % % (38.0-47.0) MCV 99.0 fL fL (81.5-99.8) MCH 34.6 pg H pg (27.9-34.1) MCHC 34.9 g/dL g/dL (32.4-36.7) RDW 12.7 % % (11.5-15.2) Plt Count 229 10^3/uL 10^3/uL (150-400) MPV 10.1 fL fL (8.7-11.7) Neut % (Auto) 90.7 % H % (39.3-74.2) Lymph % (Auto) 3.8 % L % (15.0-45.0) [place] % (Auto) 4.7 % % (4.5-13.0) Eos % (Auto) 0.0 % L % (0.6-7.6) Baso % (Auto) 0.2 % L % (0.3-1.7) Nucleat RBC Rel Count 0.0 % % (0.0-0.2) Absolute Neuts (auto) 16.07 10^3/uL H 10^3/uL (1.70-6.50) Absolute Lymphs (auto) 0.68 10^3/uL L 10^3/uL (1.00-3.00) Absolute Monos (auto) 0.83 10^3/uL H 10^3/uL (0.30-0.80) Absolute Eos (auto) 0.00 10^3/uL L 10^3/uL (0.03-0.40) Absolute Basos (auto) 0.04 10^3/uL 10^3/uL (0.02-0.10) Absolute Nucleated RBC 0.00 10^3/uL 10^3/uL (0-0.01) Immature Gran % 0.6 % % (0.0-1.1) Immature Gran # 0.11 10^3/uL H 10^3/uL (0.00-0.10) VBG Lactic Acid 0.8 mmol/L mmol/L (0.7-2.1) Sodium 138 mEq/L mEq/L (135-145) Potassium 4.2 mEq/L mEq/L (3.3-5.0) Chloride 95 mEq/L L mEq/L (97-110) Carbon Dioxide 28 mEq/l mEq/l (22-31) Anion Gap 15 mEq/L mEq/L (8-16) BUN 11 mg/dL mg/dL (7-23) Creatinine 0.7 mg/dL mg/dL (0.6-1.0) Estimated GFR > 60 Glucose 128 mg/dL H mg/dL (70-100) Calcium 9.6 mg/dL mg/dL (8.5-10.4) Medications Given: Sodium Chloride (Ns) 1,500 mls @ 250 mls/hr 30 ml/kg infuse over 6 hr (1500 ml ) IV EDNOW ONE PRN Reason: Protocol Stop: 05/04/18 18:43 Last Admin: 05/04/18 13:11 Dose: 1,500 mls Discontinued Medications Piperacillin/Tazobactam/Dextrose (Zosyn 3.375 Gm (Premix)) 50 mls @ 100 mls/hr IV EDNOW ONE Stop: 05/04/18 14:29 Last Admin: 05/04/18 14:19 Dose: 50 mls General Initial Vital Signs: Initial Vital Signs Temperature (C) 38.3 C 05/04/18 11:46 Heart Rate 87 05/04/18 11:46 Respiratory Rate 18 05/04/18 11:46 Blood Pressure 178/65 H 05/04/18 11:46 O2 Sat (%) 95 05/04/18 11:46 O2 Delivery Mode Nasal Cannula O2 (L/minute) 4 Allergies/Adverse Reactions: morphine Allergy (Verified 11/24/16 09:49) Sulfa (Sulfonamide Antibiotics) Allergy (Verified 11/24/16 09:49) sulfamethoxazole Allergy (Verified 11/24/16 09:49) Home Medications: Medication Instructions Recorded Diltiazem HCl [Diltiazem 24Hr Cd] 180 mg PO DAILY 12/09/15 Mometasone/Formoterol [Dulera 200 2 puffs IH DAILY 12/09/15 Mcg/5 Mcg Inhaler] Phenytoin Sodium Extended 200 mg PO HS 12/09/15 [Dilantin (*)] Donepezil HCl [Aricept 5 MG (*)] 5 mg PO DAILY 11/24/16 Levothyroxine [Synthroid 50 mcg 50 mcg PO DAILY06 11/24/16 (*)] Nortriptyline HCl [Pamelor 10 mg 30 mg PO HS 11/24/16 (*)] amLODIPine BESYLATE [Norvasc 2.5 2.5 mg PO DAILY #30 tab 11/25/16 mg (*)] Sennosides/Docusate Sodium 1 each PO BID 05/04/18 [Senna-S Tablet] Venlafaxine Xr [Effexor Xr 75MG 150 mg PO DAILY 05/04/18 (*)] oxyCODONE HCL [Oxycontin] 20 mg PO BID 05/04/18 oxyCODONE IR [Oxycodone Ir (*)] 2.5 mg PO BID PRN 05/04/18 Acetaminophen [Tylenol 325mg (*)] 650 mg PO Q4HRS PRN tab 05/05/18 Departure - Departure Disposition: [facility] Inpatient Acute Clinical Impression: Palliative care patient Sepsis Qualifiers: Sepsis type: sepsis due to unspecified organism Qualified Code(s): A41.9 - Sepsis, unspecified organism Condition: Good Report Scribed for: Eligio Soto Report Scribed by: Ivana Blackwell Date of Report: 05/04/18 Time of Report: 12:24 Physician Review and Approval Statement: Portions of this note were transcribed by an ED scribe. I personally performed the history, physical exam, and medical decision making; and confirm the accuracy of the information in the transcribed note.
[2018-05-04 12:10] LABS: PLATELET COUNT 229 10^3/uL (150-400)
[2018-05-04] MEDS ORDERED: NS 1,500 ML IV ONE (12:44)
[2018-05-04] MEDS ORDERED: PIPERACILLIN/TAZO 4.5 GM/DEX 100 ML IV ONE (13:08)
--- NOTE | 2018-05-04 13:48 | ASMTCMCOM ---
CM Note CM Note Notes: Met with family to discuss plan of care and family contact information. Patient lives in her own (ranch) home with her grandson who is not currently present. Patient's MATTHIAS Espinal is the primary contact per several adult family members present. Patient is current with [facility] and family has already been in contact with [facility] re visiting patient in hospital to re-evaluate for home hospice. CM to follow and be availble prn for DC planning Date Signed: 05/04/2018 01:47 PM Electronically Signed By:Rocio Nicholson RN
[2018-05-04] MEDS ORDERED: PIPERACILLIN/TAZO 3.375 GM/DEX 50 ML IV ONE (14:00)
--- NOTE | 2018-05-04 16:17 | CPEKG ---
Heart Rate: 92 RR Interval: 652 P-R Interval: 180 QRSD Interval: 88 QT Interval: 364 QTC Interval: 451 P Ralston: 13 QRS Ralston: 56 T Wave Ralston: -78 EKG Severity - OTHERWISE NORMAL ECG - EKG Impression: SINUS RHYTHM EKG Impression: ATRIAL PREMATURE COMPLEX Electronically Signed By: Nuvia Stewart 04-May-2018 16:18:51
[2018-05-04] MEDS ORDERED: ATROPINE 1% 5 ML OPHT.BTL SL PRN (16:32)
[2018-05-04] MEDS ORDERED: HALOPERIDOL LACT 5 MG/ML INJ IVP PRN (16:32)
[2018-05-04] MEDS ORDERED: ACETAMINOPHEN 325 MG TAB PO PRN (16:32)
[2018-05-04] MEDS ORDERED: ONDANSETRON DISINTEGRATING 4 MG TAB PO PRN (16:32)
[2018-05-04] MEDS ORDERED: ACETAMINOPHEN 650 MG SUPP PR PRN (16:32)
[2018-05-04] MEDS ORDERED: ONDANSETRON 4 MG/2 ML VIAL IVP PRN (16:32)
--- NOTE | 2018-05-04 18:26 | PDGENHP ---
History and Physical - Chief Complaint fever, confusion - History of Present Illness 87 yo female with h/o PVD, osteomyelitis and ischemic toe, who has previously opted to defer surgical interventions and stay home with palliative care and hospice, is brought to the ED with fever and confusion. Workup revealed leukocytosis. Blood cultures were drawn and she was given IV Zosyn. CXR is clear. UA is negative. Despite her wishes to at home, she is admitted to the hospital for management of sepsis. No reported h/o cough, CP, SOB, abdominal pain, dysuria, nausea or vomiting. History Information - Allergies/Home Medication List Allergies/Adverse Reactions: morphine Allergy (Verified 11/24/16 09:49) Sulfa (Sulfonamide Antibiotics) Allergy (Verified 11/24/16 09:49) sulfamethoxazole Allergy (Verified 11/24/16 09:49) Home Medications: Diltiazem HCl [Diltiazem 24Hr Cd] 180 mg PO DAILY 12/09/15 [Last Taken 11/23/16] Mometasone/Formoterol [Dulera 200 Mcg/5 Mcg Inhaler] 2 puffs IH DAILY 12/09/15 [ Last Taken 11/23/16] Phenytoin Sodium Extended [Dilantin (*)] 200 mg PO HS 12/09/15 [Last Taken 11/23] Donepezil HCl [Aricept 5 MG (*)] 5 mg PO DAILY 11/24/16 [Last Taken 11/23/16] Herbals/Supplements -Info Only 1 ea PO DAILY 11/24/16 [Last Taken 11/23/16] Levothyroxine [Synthroid 50 mcg (*)] 50 mcg PO DAILY06 11/24/16 [Last Taken ] Nortriptyline HCl [Pamelor 10 mg (*)] 30 mg PO HS 11/24/16 [Last Taken 11/23/16] Cholecalciferol Vit D3 [Vitamin D3 (*)] 1,000 units PO DAILY 05/04/18 [Last Taken Unknown] Ibuprofen [Motrin (*)] 200 mg PO DAILY 05/04/18 [Last Taken Unknown] Sennosides/Docusate Sodium [Senna-S Tablet] 1 each PO BID 05/04/18 [Last Taken Unknown] Venlafaxine Xr [Effexor Xr 75MG (*)] 150 mg PO DAILY 05/04/18 [Last Taken Unknown] oxyCODONE HCL [Oxycontin] 20 mg PO BID 05/04/18 [Last Taken Unknown] oxyCODONE IR [Oxycodone Ir (*)] 2.5 mg PO BID PRN 05/04/18 [Last Taken Unknown] I have personally reviewed and updated: family history, medical history, social history, surgical history - Past Medical History atrial fibrillation, peripheral artery disease, seizures Additional medical history: h/o osteomyelitis of great toe. h/o c diff. chronic pain. chronic opioid dependence - Surgical History Reports: no pertinent surgical hx - Family History Positive for: non-pertinent - Social History Smoking Status: Never smoked Alcohol Use: None Drug Use: None Additional social history: Lives at home with family. Review of Systems Review of Systems: ROS: 10pt was reviewed & negative except for what was stated in HPI & below Physical Exam Physical Exam: Temp Pulse Resp BP Pulse Ox 37.1 C 131 H 20 143/96 H 94 05/04/18 15:18 05/04/18 15:18 05/04/18 15:18 05/04/18 15:18 05/04/18 15:18 O2 (L/minute) 4 Constitutional: chronically ill appearing Eyes: PERRL Ears, Nose, Mouth, Throat: moist mucous membranes Cardiovascular: irregularly irregular Respiratory: no respiratory distress, clear to auscultation Gastrointestinal: normoactive bowel sounds, other (soft, nondistended, mild TTP , no r/r/g) Skin: warm Musculoskeletal: generalized weakness Psychiatric: encephalopathic Lab Data & Imaging Review 05/04/18 11:48 05/04/18 11:48 WBC 17.73 10^3/uL (3.80-9.50) H 05/04/18 11:48 RBC 4.19 10^6/uL (4.18-5.33) 05/04/18 11:48 Hgb 14.5 g/dL (12.6-16.3) 05/04/18 11:48 Hct 41.5 % (38.0-47.0) 05/04/18 11:48 MCV 99.0 fL (81.5-99.8) 05/04/18 11:48 MCH 34.6 pg (27.9-34.1) H 05/04/18 11:48 MCHC 34.9 g/dL (32.4-36.7) 05/04/18 11:48 RDW 12.7 % (11.5-15.2) 05/04/18 11:48 Plt Count 229 10^3/uL (150-400) 05/04/18 11:48 MPV 10.1 fL (8.7-11.7) 05/04/18 11:48 Neut % (Auto) 90.7 % (39.3-74.2) H 05/04/18 11:48 Lymph % (Auto) 3.8 % (15.0-45.0) L 05/04/18 11:[address] [place] % (Auto) 4.7 % (4.5-13.0) 05/04/18 11:48 Eos % (Auto) 0.0 % (0.6-7.6) L 05/04/18 11:48 Baso % (Auto) 0.2 % (0.3-1.7) L 05/04/18 11:48 Nucleat RBC Rel Count 0.0 % (0.0-0.2) 05/04/18 11:48 Absolute Neuts (auto) 16.07 10^3/uL (1.70-6.50) H 05/04/18 11:48 Absolute Lymphs (auto) 0.68 10^3/uL (1.00-3.00) L 05/04/18 11:48 Absolute Monos (auto) 0.83 10^3/uL (0.30-0.80) H 05/04/18 11:48 Absolute Eos (auto) 0.00 10^3/uL (0.03-0.40) L 05/04/18 11:48 Absolute Basos (auto) 0.04 10^3/uL (0.02-0.10) 05/04/18 11:48 Absolute Nucleated RBC 0.00 10^3/uL (0-0.01) 05/04/18 11:48 Immature Gran % 0.6 % (0.0-1.1) 05/04/18 11:48 Immature Gran # 0.11 10^3/uL (0.00-0.10) H 05/04/18 11:48 VBG Lactic Acid 0.8 mmol/L (0.7-2.1) 05/04/18 11:48 Sodium 138 mEq/L (135-145) 05/04/18 11:48 Potassium 4.2 mEq/L (3.3-5.0) 05/04/18 11:48 Chloride 95 mEq/L (97-110) L 05/04/18 11:48 Carbon Dioxide 28 mEq/l (22-31) 05/04/18 11:48 Anion Gap 15 mEq/L (8-16) 05/04/18 11:48 BUN 11 mg/dL (7-23) 05/04/18 11:48 Creatinine 0.7 mg/dL (0.6-1.0) 05/04/18 11:48 Estimated GFR > 60 05/04/18 11:48 Glucose 128 mg/dL (70-100) H 05/04/18 11:48 Calcium 9.6 mg/dL (8.5-10.4) 05/04/18 11:48 Total Bilirubin 0.5 mg/dL (0.1-1.4) 05/04/18 11:48 Conjugated Bilirubin 0.2 mg/dL (0.0-0.5) 05/04/18 11:48 Unconjugated Bilirubin 0.3 mg/dL (0.0-1.1) 05/04/18 11:48 AST 57 IU/L (14-46) H 05/04/18 11:48 ALT 34 IU/L (9-52) 05/04/18 11:48 Alkaline Phosphatase 149 IU/L (38-126) H 05/04/18 11:48 Total Protein 8.6 g/dL (6.3-8.2) H 05/04/18 11:48 Albumin 4.7 g/dL (3.5-5.0) 05/04/18 11:48 Procalcitonin 0.10 ng/mL (0.02-0.10) 05/04/18 11:48 Urine Color PALE YELLOW 05/04/18 13:49 Urine Appearance CLEAR 05/04/18 13:49 Urine pH 8.0 (5.0-7.5) H 05/04/18 13:49 Ur Specific [place] 1.009 (1.002-1.030) 05/04/18 13:49 Urine Protein NEGATIVE (NEGATIVE) 05/04/18 13:49 Urine Ketones NEGATIVE (NEGATIVE) 05/04/18 13:49 Urine Blood NEGATIVE (NEGATIVE) 05/04/18 13:49 Urine Nitrate NEGATIVE (NEGATIVE) 05/04/18 13:49 Urine Bilirubin NEGATIVE (NEGATIVE) 05/04/18 13:49 Urine Urobilinogen NEGATIVE EU (0.2-1.0) 05/04/18 13:49 Ur Leukocyte Esterase NEGATIVE (NEGATIVE) 05/04/18 13:49 Urine Glucose NEGATIVE (NEGATIVE) 05/04/18 13:49 Visualized and Interpreted Chest x-ray results: Yes Chest X-Ray results: no infiltrate Visualized and Interpreted imaging results: Yes Visualized and Interpreted EKG results: Yes EKG Interpretation: Positive for: normal sinsus rhythm Assessment & Plan Assessment: Sepsis - SIRS criteria: HR, leukocytosis. Lactate nl, afebrile. No hypotension. CXR clear. UA neg. Suspect ischemic toe is source. See goals of care discussion below. Will treat with IV Zosyn overnight so she will remain stable for transfer home on hospice in the am. Rapid A fib - she converted back to NSR. Will continue diltiazem if she passes bedside swallow. Family does not want her to transfer to cardiac unit for IV medications. Recommend d/c'ing telemetry, turn off monitor and providing comfort measures only. Ischemic great toe - with known PAD. She has previously opted to defer re- vascularization surgery or amputation and wished to go home with palliative care and hospice to manage this. It was not made clear to the family that this path would ultimately lead to infection and end of life. Now that she is in that phase, they realize she does not want aggressive interventions and wishes to at home (as documented in ED note). We discussed that there is no endpoint for source control without amputation and/or revascularization, which will most definitely not be pursued per pt's clearly stated wishes. Will continue IV atbx overnight so she will hopefully be stable for transfer home in am, at which point atbx will be stopped and family is better prepared for end of life phase. Encephalopathy - likely secondary to infection. H/O C diff - will provide po vanc to prevent c diff during short course of atbx DNR per TUSHAR and confirmed by her daughter in law, Kylie, who is MDP Goals of care - A total of 75 minutes was spent with family members on 2 occasions discussing care goals. As above, her entire family agrees that she wants to pass away at home and does not want interventions. Hospice eval with plan to dc home with hospice in am. Comfort measures in the meantime.
[2018-05-04] MEDS: DILTIAZEM CD 180 MG CAP PO SCH (18:40)
[2018-05-04] MEDS: VANCOMYCIN 125 MG/2.5 ML UDL PO SCH (18:46)
[2018-05-04] MEDS: PIPERACILLIN/TAZO 3.375 GM/DEX 50 ML IV SCH (20:50)
[2018-05-04] MEDS ORDERED: PHENYTOIN SODIUM EXTENDED 100 MG CAP PO SCH (21:00)
[2018-05-05] MEDS: HYDROmorphONE/DILAUDID 1 MG/ML INJ IVP PRN ×2 (00:22→09:49)
[2018-05-05] MEDS: PIPERACILLIN/TAZO 3.375 GM/DEX 50 ML IV SCH ×2 (02:29→09:09)
[2018-05-05 08:47] VITALS: BP 148/90
[2018-05-05] MEDS ORDERED: VENLAFAXINE XR 75 MG CAP PO SCH (09:00)
[2018-05-05] MEDS ORDERED: Mometasone/Formoterol [Dulera 200 Mcg/5 Mcg Inhaler] 2 PUFFS IH SCH (09:00)
--- NOTE | 2018-05-05 09:02 | PDMN ---
Medical Necessity Medical necessity: Pt meets INPT criteria per MD and [facility] [place] [facility] Sepsis and Other Febrile Illness (sepsis with SIRS criteria - tachycardia, leukocytosis, suspect ischemic toe is source; requiring IV Zosyn, with rapid Afib, encephalopathy).
[2018-05-05] MEDS: DILTIAZEM CD 180 MG CAP PO SCH (09:08)
[2018-05-05] MEDS: VANCOMYCIN 125 MG/2.5 ML UDL PO SCH (09:20)
--- NOTE | 2018-05-05 10:14 | PDIAF ---
- Diagnosis Diagnosis: ischemic toe, osteomyelitis Code Status: Do Not Resuscitate - Medication Management Discharge Medications: Medications to Continue on Transfer Diltiazem HCl [Diltiazem 24Hr Cd] 180 mg PO DAILY 12/09/15 [Last Taken 11/23/16] Mometasone/Formoterol [Dulera 200 Mcg/5 Mcg Inhaler] 2 puffs IH DAILY 12/09/15 [ Last Taken 11/23/16] Phenytoin Sodium Extended [Dilantin (*)] 200 mg PO HS 12/09/15 [Last Taken 11/23] Donepezil HCl [Aricept 5 MG (*)] 5 mg PO DAILY 11/24/16 [Last Taken 11/23/16] Levothyroxine [Synthroid 50 mcg (*)] 50 mcg PO DAILY06 11/24/16 [Last Taken ] Nortriptyline HCl [Pamelor 10 mg (*)] 30 mg PO HS 11/24/16 [Last Taken 11/23/16] amLODIPine BESYLATE [Norvasc 2.5 mg (*)] 2.5 mg PO DAILY #30 tab 11/25/16 [Last Taken Unknown] Sennosides/Docusate Sodium [Senna-S Tablet] 1 each PO BID 05/04/18 [Last Taken Unknown] Venlafaxine Xr [Effexor Xr 75MG (*)] 150 mg PO DAILY 05/04/18 [Last Taken Unknown] oxyCODONE HCL [Oxycontin] 20 mg PO BID 05/04/18 [Last Taken Unknown] oxyCODONE IR [Oxycodone Ir (*)] 2.5 mg PO BID PRN 05/04/18 [Last Taken Unknown] Acetaminophen [Tylenol 325mg (*)] 650 mg PO Q4HRS PRN tab 05/05/18 [Last Taken Unknown] Discharge Medications: Refer to the Discharge Home Medication list for PRN reason. PICC Care - Routine: N/A - Orders Services needed: Home Assisted Care Face to Face: I certify that this patient was under my care and that I had the required [id number] encounter meeting the encounter requirements on the discharge day. My findings support the fact that the patient is homebound as defined in Home Care Face to Face Continued: CMS Chapter 7 Medicare Benefits Manual 30.1.1 , The condition of the patient is such that there exists a normal inability to leave home and consequently, leaving home would require a considerable and taxing effort. Diet Texture: Regular Texture Diet, Thin Liquids Additional Instructions: Home hospice with [facility] - Follow Up Care Current Providers and Referrals: Patient,NotPresent [Unknown] - As per Instructions
--- NOTE | 2018-05-05 14:20 | ASMTDCNOTE ---
Case Management Discharge Discharge Order Complete? Answers: Yes Patient to Obtain Answers: via Family Medications Transportation Arranged Answers: Other Notes: [facility] stretcher transport Transport will Pick (Date 05/05/2018 01:30 PM & Time) EMTALA Complete Answers: No Case Management Transport Answers: No Form Complete Faxed Final Orders Answers: Yes Agency/Facility Transfer Answers: Yes Report Printed & Faxed to Receiving Agency Family Notified Answers: No Discharge Comments Notes: Pts case discussed with [facility] Mcconnell and Dr. Gomez. Pt is being discharged today. Edna from [facility] came and met w/ pt and family. [facility] will meet w/ pt in their home to sign consents at 2:30PM. [facility] will set up transportation via stretcher. DC orders sent. CM available for changes. Plan: Home w/ [facility] Date Signed: 05/05/2018 02:20 PM Electronically Signed By:ANDREW New
--- NOTE | 2018-05-05 14:20 | ASDISCHSUM ---
Discharge Information Plan Status:Hospice-Home Medically Cleared to Leave: Discharge Date:05/05/2018 02:00 PM CM D/C Disposition: ADT D/C Disposition:Hospice Home Projected Discharge Date:05/05/2018 11:00 AM Transportation at D/C: Discharge Delay Reason: Follow-Up Date:05/05/2018 11:00 AM Discharge Slot: Final Diagnosis: Placement Information Referral Type:*Hospice Referral ID:[id number] Provider [facility] Address 1:[address] Address 2: City:[place] Selection Factors: State:[place] Patient Contact Information Contact Name:WILFREDO Relationship:Other Address: Work Phone: City: [place] [place] Phone: State/Zip Code: Email: Financial Information Financial Class:Medicare Advantage Plans Primary Plan Desc:[employer] ADV IP Primary Plan Number:[id number] Secondary Plan Desc: Secondary Plan Number: Assessment Information [facility] CM Progress Note CM Note CM Note Notes: Met with family to discuss plan of care and family contact information. Patient lives in her own (ranch) home with her grandson who is not currently present. Patient's MATTHIAS Espinal is the primary contact per several adult family members present. Patient is current with [facility] and family has already been in contact with [facility] re visiting patient in hospital to re-evaluate for home hospice. CM to follow and be availble prn for DC planning Date Signed: 05/04/2018 01:47 PM Electronically Signed By:Rocio Nicholson RN LACE JAMES Length of stay for Answers: 1 day current admission Acuity / Level of Answers: Yes Care: Did the patient have an inpatient admission? # of Emergency department Answers: 1-2 visits in the last 6 months Score: 5 Date Signed: 05/05/2018 02:18 PM Electronically Signed By:ANDREW New Intervention Information
--- NOTE | 2018-05-05 20:20 | GDS ---
[f rep st] DISCHARGE SUMMARY DISCHARGE DIAGNOSES: 1. Sepsis secondary to ischemic toe with history of osteomyelitis. 2. Peripheral arterial disease with known occlusion. The patient has previously deferred surgical t herapy. 3. Ischemic great toe. Again, patient has declined surgery, and they are managing this with palliat niki care, hospice approach. 4. Rapid atrial fibrillation converted back to normal sinus rhythm. 5. encephalopathy, resolved. 6. History of Clostridium difficile. 7. Do not resuscitate. HISTORY: For details, please see history and physical dated May 04, 2018. In brief the patient is an 87-year-old female with a known history of occlusive peripheral artery disease and osteomyelitis with chronic ischemic toe, who presents to the emergency department with confusion and fever of 102 a t home. She is admitted to the hospital for further management. HOSPITAL COURSE: The patient was admitted to the med/surg unit. As above, she had previously been e valuated for her gangrenous toe and osteomyelitis in the setting of occlusive peripheral arterial dis ease. She declined revascularization surgery and toe amputation. Instead, she opted to go home with palliative care with the intent to involve hospice. On the day of admission, she was found to have a fever with confusion and was advised by their home health nurse to come to the emergency department . In the emergency department, she met criteria for sepsis with leukocytosis and elevated heart rate . She is admitted to the hospital for further management of her hospital course. Patient admitted t o the med/surg unit. Upon review of her chart, it became clear that she wishes to at home on hos pice, and indeed they were planning to meet with hospice to transition from palliative care. We disc ussed the issue of source control as her sepsis source is likely her infected gangrenous toe and oste omyelitis. She has previously declined operative intervention and revascularization. Therefore, it is difficult to manage this with IV antibiotics alone without a clear end point. It seems they lacke d education of what to expect for her end of life phase as she transitioned from palliative care to h ospice. I explained to them the likely outcome of not managing her ischemic toe with operative inter vention would indeed be infection leading to sepsis and ultimately . A lengthy family discussio n occurred, and all of her children acknowledged that she wished to leave the hospital and pass away at home under hospice care rather than continuing prolonged hospitalization with interventions, inclu ding IV antibiotics. [facility] visited with the patient on the day of discharge, and she is expect ed to home hospice. DISPOSITION: Patient is discharged home in stable condition with home hospice care. DISCHARGE MEDICATIONS: Please see [facility] completed outpatient medication list. New medication for comfort care per the hospice service. /[id number]/MODL
== END 2018-05-05 14:00 | disposition hospice, home (50) | DRG 871 ==
LOC: EDUNIT# → F3E 14:47
PROVIDERS: ADMIT Hospitalist; ATTEND Hospitalist
DX: A41.9 Sepsis, unspecified organism (principal); I96 Gangrene, not elsewhere classified; M86.9 Osteomyelitis, unspecified; Z51.5 Encounter for palliative care; G93.40 Encephalopathy, unspecified; I73.9 Peripheral vascular disease, unspecified; I48.91 Unspecified atrial fibrillation; I10 Essential (primary) hypertension; E03.9 Hypothyroidism, unspecified; F32.9 Major depressive disorder, single episode, unspecified; Z66 Do not resuscitate
CPT/HCPCS: 92610-GN; G8996-GN-CI; G8997-GN-CI; G8998-GN-CI; J1170; J2405; J2543